=== PATIENT | male | born 1930 | race Caucasian/White ===

== ENCOUNTER → 2016-09-27 | Outpatient (CLI) | payer MEDICARE ==
--- NOTE | 2016-09-27 12:57 | REP ---
KUB: Two views. History: None provided. Comparison x-ray September 15, 2015. Findings: Bowel gas pattern is unremarkable. There are clips in the right upper quadrant. There is a mild levoconvex curve and some degenerative spondylosis in the lumbar spine. Mild vascular calcification is noted. Psoas margins are symmetric. No mass, organomegaly or pathologic calcification is seen. Impression: Right upper quadrant clips. 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 Otherwise negative. Signed by Brendan Mariscal MD 09/27/2016 01:31 P
== END ==
LOC: M LRY 09:50
PROVIDERS: ATTEND Urology
DX: R97.20 Elevated prostate specific antigen [PSA] (principal); N20.0 Calculus of kidney; M47.896 Other spondylosis, lumbar region

== ENCOUNTER → 2016-11-23 | Outpatient (REF) | payer MEDICARE ==
[~2016-11-23] MED LIST: ACAR50TA2 PO; FLON1SPR; GLIM4TAB PO; JANU100T PO; LATA5OPD OU; LISI10TA4 PO; PROT1TAB2 PO; SIMV20TA2 PO; ZOFR4TAB3 PO
[2016-11-23 11:25] LABS: MEAN CORPUSCULAR HEMOGLOBIN 31.5 pg (27.0-33.0); MEAN CORPUSCULAR HGB CONC 33.9 g/dl (32.0-36.5); MEAN CORPUSCULAR VOLUME 93.1 fl (80.0-96.0); RED CELL DISTRIBUTION WIDTH 13.1 % (11.5-14.5); WHITE BLOOD COUNT 8.8 K/mm3 (4.0-10.0)
[2016-11-23 11:34] LABS: CALCIUM LEVEL 8.6 MG/DL (8.8-10.2); CREATININE FOR GFR 1.7 MG/DL (0.70-1.30); GLOMERULAR FILTRATION RATE 40.9 (>35)
== END ==
LOC: M SFHCLERA 08:06
PROVIDERS: ATTEND Family Medicine
DX: E11.9 Type 2 diabetes mellitus without complications (principal)
CPT/HCPCS: 80048; 83036; 85027; G0463

== ENCOUNTER 2017-01-17 09:36 | Emergency (ER) | payer MEDICARE ==
[~2017-01-17] VITALS: Ht 182.9 cm; Wt 70.0 kg
[2017-01-17 09:37] VITALS: BP 114/68
[2017-01-17] MEDS ORDERED: JANU100T PO (09:45)
[2017-01-17] MEDS ORDERED: SIMV20TA2 PO (09:53)
[2017-01-17] MEDS ORDERED: GLIM4TAB PO (09:53)
[2017-01-17] MEDS ORDERED: ACAR50TA2 PO (09:53)
[2017-01-17] MEDS ORDERED: LATA5OPD OU (09:53)
[2017-01-17] MEDS ORDERED: LISI10TA4 PO (09:53)
[2017-01-17] MEDS ORDERED: FLON1SPR (09:53)
[2017-01-17] MEDS ORDERED: PROT1TAB2 PO (10:24)
[2017-01-17] MEDS ORDERED: ZOFR4TAB3 PO (10:24)
== END 2017-01-17 10:30 | disposition home or self-care (01) ==
LOC: M ED 09:36
DX: K29.00 Acute gastritis without bleeding (principal); I10 Essential (primary) hypertension; E11.9 Type 2 diabetes mellitus without complications

== ENCOUNTER → 2017-01-22 | Outpatient (REF) | payer MEDICARE ==
[2017-01-22 21:11] LABS: ALBUMIN 3.1 GM/DL (3.2-5.2); ALBUMIN/GLOBULIN RATIO 1.15 (1.00-1.93); BILIRUBIN,TOTAL 0.4 MG/DL (0.2-1.0); CALCIUM LEVEL 8.3 MG/DL (8.8-10.2); CREATININE FOR GFR 1.52 MG/DL (0.70-1.30); GLOMERULAR FILTRATION RATE 46.5 (>35); POTASSIUM SERUM 4.2 MEQ/L (3.5-5.1); TOTAL PROTEIN 5.8 GM/DL (6.4-8.2)
== END ==
LOC: M SFHCLERA 18:53
PROVIDERS: ATTEND Family Medicine
DX: R11.10 Vomiting, unspecified (principal)
CPT/HCPCS: 80053; G0463

== ENCOUNTER → 2017-01-25 | Outpatient (CLI) | payer MEDICARE ==
--- NOTE | 2017-01-25 10:49 | REP ---
Clinical: Abdominal pain with acute vomiting. Technique: Real time richard scale and color evaluation using curved array transducer. Findings: The patient is noted to be status post cholecystectomy without biliary ductal dilatation. The common bile duct measures 4.6 mm diameter. Liver, pancreas, and spleen are normal in contour, size, and echogenicity without focal hepatic, splenic or pancreatic lesions identified. Right kidney measures 8.1 x 4.6 x 5.8 cm and includes 2.4 cm simple upper pole and 1.4 cm simple midpole cysts. Left kidney measures 10.0 x 6.1 x 6.1 cm with suspected 12 mm nonobstructing intrarenal calculus. The kidneys are otherwise unremarkable and without mass lesion or hydronephrosis. The bladder is under distended but demonstrates normal bilateral ureteral jets and no obvious mass lesion. Bladder currently measures 4.3 x 4.7 x 1.6 cm. The underlying prostate gland is heterogeneous and enlarged measuring roughly 4.6 cm maximal transverse diameter. The abdominal aorta is incompletely evaluated due to interposed bowel gas. No ascites. Impression: 1. Kidneys demonstrate to right simple renal cysts and suspected 12 mm nonobstructing renal calculus. 2. Enlarged heterogeneous prostate gland. Signed by Chris Molina MD 01/25/2017 10:41 A
== END ==
LOC: M LRY 08:25
PROVIDERS: ATTEND Family Medicine
DX: R11.10 Vomiting, unspecified (principal); N28.1 Cyst of kidney, acquired; N40.1 Benign prostatic hyperplasia with lower urinary tract symptoms

== ENCOUNTER → 2017-02-21 | Outpatient (REF) | payer MEDICARE | LOC: M SMT 17:03 | PROVIDERS: ATTEND Nurse Practitioner Women's Health | DX: N40.0 Benign prostatic hyperplasia without lower urinary tract symptoms (principal) | CPT/HCPCS: 51798; 81001; 87086; G0463 ==

== ENCOUNTER → 2017-04-19 | Outpatient (CLI) | payer MEDICARE | LOC: M LRY 10:54 | PROVIDERS: ATTEND Urology | DX: R35.0 Frequency of micturition (principal) ==

== ENCOUNTER → 2017-05-31 | Outpatient (REF) | payer MEDICARE ==
[2017-05-31 12:11] LABS: HEMATOCRIT 46.7 % (42.0-52.0); HEMOGLOBIN 15.5 g/dl (14.0-18.0); MEAN CORPUSCULAR HEMOGLOBIN 30.4 pg (27.0-33.0); MEAN CORPUSCULAR HGB CONC 33.2 g/dl (32.0-36.5); MEAN CORPUSCULAR VOLUME 91.6 fl (80.0-96.0); PLATELET COUNT, AUTOMATED 250 10^3/uL (150-450); RED CELL DISTRIBUTION WIDTH 12.3 % (11.5-14.5)
[2017-05-31 12:21] LABS: MAGNESIUM LEVEL 2.1 MG/DL (1.8-2.4)
[2017-05-31 12:26] LABS: ESTIMATED AVERAGE GLUCOSE 278 MG/DL (60-110); HEMOGLOBIN A1c 11.3 %
[2017-05-31 12:34] LABS: ALBUMIN 3.6 GM/DL (3.2-5.2); ALBUMIN/GLOBULIN RATIO 1.33 (1.00-1.93); ALKALINE PHOSPHATASE 112 U/L (45-117); ALT/SGPT 22 U/L (12-78); ANION GAP 7 MEQ/L (8-16); AST/SGOT 14 U/L (7-37); BILIRUBIN,TOTAL 0.7 MG/DL (0.2-1.0); BLOOD UREA NITROGEN 15 MG/DL (7-18); CALCIUM LEVEL 8.7 MG/DL (8.8-10.2); CARBON DIOXIDE LEVEL 29 MEQ/L (21-32); CHLORIDE LEVEL 104 MEQ/L (98-107); CHOLESTEROL LEVEL 159 MG/DL (<200); CHOLESTEROL RISK RATIO 3.244 (<5); CREATININE FOR GFR 1.48 MG/DL (0.70-1.30); GLUCOSE, FASTING 331 MG/DL (83-110); HDL CHOLESTEROL 49 MG/DL (>40); LDL CHOLESTEROL 83.2 MG/DL (<100); NON-HDL-C 110 MG/DL; POTASSIUM SERUM 4.1 MEQ/L (3.5-5.1); SODIUM LEVEL 140 MEQ/L (136-145); TOTAL PROTEIN 6.3 GM/DL (6.4-8.2); TRIGLYCERIDES LEVEL 134 MG/DL (<150)
[2017-05-31 12:54] LABS: MALB URINE SIEMENS 28.4 MG/L; MAU/CREAT RATIO 17.9 MCG/MG (0.0-30.0)
== END ==
LOC: M SFHCLERA 07:58
DX: E11.9 Type 2 diabetes mellitus without complications (principal); K21.9 Gastro-esophageal reflux disease without esophagitis
CPT/HCPCS: 83735

== ENCOUNTER 2017-07-07 04:15 | Inpatient (IN) | payer MEDICARE ==
[2017-07-07 05:10] LABS: HEMATOCRIT 49.3 % (42.0-52.0); HEMOGLOBIN 15.5 g/dl (14.0-18.0); MEAN CORPUSCULAR HGB CONC 31.4 g/dl (32.0-36.5); MEAN CORPUSCULAR VOLUME 98.6 fl (80.0-96.0); PLATELET COUNT, AUTOMATED 291 10^3/uL (150-450); RED CELL DISTRIBUTION WIDTH 13.1 % (11.5-14.5); WHITE BLOOD COUNT 21.8 10^3/uL (4.0-10.0)
[2017-07-07 05:14] LABS: ADD MANUAL DIFFER YES; DIFF SLIDE NUMBER 83; POSITIVE MORPH POS FLAG
[2017-07-07] MEDS: NS 500 ML IV ×2 (05:15→06:15)
[2017-07-07] MEDS: HumuLIN R (REGULAR) INSULIN (NovoLIN R) **100U/ML** PER UNIT IV ×3 (05:15→10:01)
[2017-07-07 05:36] LABS: ALBUMIN 2.8 GM/DL (3.2-5.2); ALBUMIN/GLOBULIN RATIO 0.64 (1.00-1.93); ALKALINE PHOSPHATASE 141 U/L (45-117); ALT/SGPT 17 U/L (12-78); ANION GAP 15 MEQ/L (8-16); AST/SGOT 19 U/L (7-37); BILIRUBIN,DIRECT 0.5 MG/DL (0.0-0.2); BILIRUBIN,TOTAL 1.2 MG/DL (0.2-1.0); BLOOD UREA NITROGEN 80 MG/DL (7-18); CALCIUM LEVEL 8.1 MG/DL (8.8-10.2); CARBON DIOXIDE LEVEL 23 MEQ/L (21-32); CHLORIDE LEVEL 94 MEQ/L (98-107); CREATININE FOR GFR 3.56 MG/DL (0.70-1.30); FREE THYROXINE INDEX 3.1 % (1.4-3.8); GLOMERULAR FILTRATION RATE 17.4 (>35); SODIUM LEVEL 132 MEQ/L (136-145); T UPTAKE 34 % (33-40); THYROID STIMULATING HORMONE 0.374 uIU/ML (0.358-3.740); TOTAL PROTEIN 7.2 GM/DL (6.4-8.2)
[2017-07-07 05:56] LABS: GLUCOSE, FASTING 1147 MG/DL (70-100)
[2017-07-07 06:08] LABS: LYMPHOCYTES 5 % (16-52); NEUTROPHILS 95 % (35-75); PLATELET ESTIMATE NORMAL (NORMAL)
[2017-07-07] MEDS ORDERED: INSULIN IV RATE CHANGE DOCUMENTATION ML/HR XX (06:15)
[2017-07-07] MEDS: INSULIN HUMAN REGULAR 100 UNITS in NS 99 ML IV ×2 (06:15→10:01)
[2017-07-07 06:17] LABS: INFLUENZA A AMPLIFICATION NEGATIVE (NEGATIVE); INFLUENZA B AMPLIFICATION NEGATIVE (NEGATIVE)
[2017-07-07] MEDS: SOD POLYSTYRENE SULFONATE SUSP 15 GM/60 ML UD PO (07:36)
[2017-07-07] MEDS: NS 2,320 ML in APPROPRIATE DILUENT 1 EA IV (08:15)
[2017-07-07] MEDS ORDERED: ONDANSETRON 4MG/2ML VIAL (J2405) IV (08:15)
[2017-07-07 08:42] LABS: MAGNESIUM LEVEL 3.1 MG/DL (1.8-2.4); PHOSPHORUS LEVEL 4.7 MG/DL (2.5-4.9)
[2017-07-07 09:19] LABS: APPEARANCE, URINE HAZY (CLEAR); BACTERIA, URINE AUTO 2+ (NEGATIVE); BILIRUBIN, URINE AUTO NEGATIVE (NEGATIVE); BLOOD, URINE BLOOD 2+ (NEGATIVE); COLOR, URINE YELLOW (YELLOW); GLUCOSE, URINE (UA) AUTO 3+ mg/dL (NEGATIVE); KETONE, URINE AUTO TRACE mg/dL (NEGATIVE); LEUKOCYTE ESTERASE, URINE AUTO 1+ (NEGATIVE); MUCUS, URINE SMALL (NEGATIVE); NITRITE, URINE AUTO NEGATIVE (NEGATIVE); PROTEIN, URINE AUTO NEGATIVE (NEGATIVE); RBC, URINE AUTO 4 /HPF (0-3); SPECIFIC GRAVITY URINE AUTO 1.023 (1.002-1.035); SQUAMOUS EPITHELIAL CELL UR AU 0 /HPF (0-6); UROBILINOGEN, URINE AUTO 0.2 mg/dL (0.0-2.0); WBC, URINE AUTO 71 /HPF (0-3)
[2017-07-07] MEDS: PANTOPRAZOLE 40MG TAB (PROTONIX) PO (10:01)
[2017-07-07] MEDS: LACTOBACILLUS ACIDOPHILUS CAP (BACID) PO ×3 (10:01→17:10)
[2017-07-07] MEDS: HEPARIN SOD (PORCINE) 5000 UNITS/ML VIAL SC ×2 (10:02→13:41)
[2017-07-07 10:12] LABS: BEDSIDE GLUCOSE 537 MG/DL (83-110)
[2017-07-07] MEDS: NS 1,000 ML IV ×5 (10:17→23:13)
[2017-07-07] MEDS: INSULIN IV RATE CHANGE DOCUMENTATION ML/HR XX ×9 (11:05→23:28)
[2017-07-07] MEDS: VANCOMYCIN HCL 1,000 MG, VIAL MATE ADAPTER 1 EACH in D5W 250 ML IV (11:16)
[2017-07-07] MEDS: CEFTRIAXONE SOD 1 GM in APPROPRIATE DILUENT 1 EA IV (11:16)
[2017-07-07 11:29] LABS: BEDSIDE GLUCOSE 444 MG/DL (83-110)
[2017-07-07 12:19] LABS: BEDSIDE GLUCOSE 356 MG/DL (83-110)
[2017-07-07 12:56] LABS: ESTIMATED AVERAGE GLUCOSE 332 MG/DL (60-110); HEMOGLOBIN A1c 13.2 %
[2017-07-07 12:58] LABS: BEDSIDE GLUCOSE > 600 MG/DL (83-110)
[2017-07-07 12:58] LABS: BEDSIDE GLUCOSE > 600 MG/DL (83-110)
[2017-07-07 12:58] LABS: BEDSIDE GLUCOSE > 600 MG/DL (83-110)
[2017-07-07 12:58] LABS: BEDSIDE GLUCOSE > 600 MG/DL (83-110)
[2017-07-07 12:58] LABS: BEDSIDE GLUCOSE > 600 MG/DL (83-110)
[2017-07-07 13:13] LABS: BLOOD UREA NITROGEN 75 MG/DL (7-18); CK-MB VALUE MASS 1.1 NG/ML (0.0-3.6); CPK CREATINE PHOSPHOKINASE 111 U/L (39-308); CREATININE FOR GFR 3.19 MG/DL (0.70-1.30); GLOMERULAR FILTRATION RATE 19.8 (>35); GLUCOSE, FASTING 371 MG/DL (70-100); MB/CK RELATIVE INDEX 0.99 (< OR =4); TROPONIN I < 0.02 NG/ML (< 0.10)
[2017-07-07 13:14] LABS: ANION GAP 11 MEQ/L (8-16); CARBON DIOXIDE LEVEL 25 MEQ/L (21-32); CHLORIDE LEVEL 115 MEQ/L (98-107); POTASSIUM SERUM 3.6 MEQ/L (3.5-5.1); SODIUM LEVEL 151 MEQ/L (136-145)
[2017-07-07 13:14] LABS: BEDSIDE GLUCOSE 352 MG/DL (83-110)
[2017-07-07 13:15] LABS: CALCIUM LEVEL 7.8 MG/DL (8.8-10.2)
[2017-07-07] MEDS: CALCIUM GLUCONATE 1,000 MG in D5W MINI-BAG PLUS 100 ML IV (13:40)
[2017-07-07 13:41] LABS: ACETONE/KETONE 0.89 MG/DL (<2.81)
[2017-07-07 13:49] LABS: LACTIC ACID SEPSIS PROTOCOL 4.9 MMOL/L (0.4-2.0)
[2017-07-07 14:28] LABS: BEDSIDE GLUCOSE 311 MG/DL (83-110)
[2017-07-07 15:06] LABS: BEDSIDE GLUCOSE 278 MG/DL (83-110)
[2017-07-07 16:36] LABS: BEDSIDE GLUCOSE 303 MG/DL (83-110)
[2017-07-07 17:06] LABS: ANION GAP 7 MEQ/L (8-16); BLOOD UREA NITROGEN 77 MG/DL (7-18); CALCIUM LEVEL 8.4 MG/DL (8.8-10.2); CARBON DIOXIDE LEVEL 30 MEQ/L (21-32); CHLORIDE LEVEL 112 MEQ/L (98-107); CREATININE FOR GFR 2.97 MG/DL (0.70-1.30); GLOMERULAR FILTRATION RATE 21.5 (>35); GLUCOSE, FASTING 200 MG/DL (70-100); POTASSIUM SERUM 3.3 MEQ/L (3.5-5.1); SODIUM LEVEL 149 MEQ/L (136-145)
[2017-07-07] MEDS ORDERED: LACTOBACILLUS ACIDOPHILUS CAP (BACID) PO (18:00)
[2017-07-07 18:10] LABS: BEDSIDE GLUCOSE 207 MG/DL (83-110)
[2017-07-07 19:06] LABS: BEDSIDE GLUCOSE 183 MG/DL (83-110)
[2017-07-07] MEDS: ACETAMINOPHEN TAB 650MG DOSE (2X325MG) PO (20:14)
[2017-07-07] MEDS: SIMVASTATIN 20 MG TAB PO (20:14)
[2017-07-07] MEDS: LATANOPROST 0.005% OPHTH SOLN 2.5 ML OU (20:14)
[2017-07-07 20:42] LABS: ANION GAP 10 MEQ/L (8-16); BLOOD UREA NITROGEN 78 MG/DL (7-18); CALCIUM LEVEL 7.9 MG/DL (8.8-10.2); CARBON DIOXIDE LEVEL 24 MEQ/L (21-32); CHLORIDE LEVEL 114 MEQ/L (98-107); CK-MB VALUE MASS 1.1 NG/ML (0.0-3.6); CPK CREATINE PHOSPHOKINASE 111 U/L (39-308); CREATININE FOR GFR 2.84 MG/DL (0.70-1.30); GLOMERULAR FILTRATION RATE 22.6 (>35); GLUCOSE, FASTING 187 MG/DL (70-100); MB/CK RELATIVE INDEX 0.99 (< OR =4); POTASSIUM SERUM 3.2 MEQ/L (3.5-5.1); SODIUM LEVEL 148 MEQ/L (136-145); TROPONIN I < 0.02 NG/ML (< 0.10)
[2017-07-07 21:09] LABS: BEDSIDE GLUCOSE 174 MG/DL (83-110)
[2017-07-07] MEDS ORDERED: POTASSIUM BICARBONATE 25 MEQ TAB PO ×2 (21:15→22:00)
[2017-07-07] MEDS: D5/0.45%NACL 1000ML IV (21:30)
[2017-07-07 21:57] LABS: MAGNESIUM LEVEL 2.6 MG/DL (1.8-2.4); PHOSPHORUS LEVEL 1.8 MG/DL (2.5-4.9)
[2017-07-07] MEDS: PHENYLEPHRINE HCL IV (22:00)
[2017-07-07] MEDS: NS IV (22:00)
[2017-07-07] MEDS ORDERED: PHENYLEPHRINE INJ 10MG/ML VIAL (J2370) As Ordered (22:02)
[2017-07-07] MEDS: POTASSIUM CHLORIDE 10 MEQ SR TABLET PO (22:19)
[2017-07-07 23:03] LABS: BEDSIDE GLUCOSE 242 MG/DL (83-110)
[2017-07-07] MEDS: PIPERACILLIN/TAZOBACTAM SOD 2.25 GM in APPROPRIATE DILUENT 1 EA IV (23:13)
[2017-07-07] MEDS: POTASSIUM PHOSPHATE INJ 15 MMOL in D5W 250 ML IV (23:23)
[2017-07-08 00:21] LABS: BEDSIDE GLUCOSE 222 MG/DL (83-110)
[2017-07-08 00:39] LABS: ANION GAP 9 MEQ/L (8-16); BLOOD UREA NITROGEN 66 MG/DL (7-18); CALCIUM LEVEL 6.8 MG/DL (8.8-10.2); CARBON DIOXIDE LEVEL 23 MEQ/L (21-32); CHLORIDE LEVEL 116 MEQ/L (98-107); GLOMERULAR FILTRATION RATE 26.2 (>35); GLUCOSE, FASTING 202 MG/DL (70-100); POTASSIUM SERUM 3.4 MEQ/L (3.5-5.1); SODIUM LEVEL 148 MEQ/L (136-145)
[2017-07-08] MEDS ORDERED: NOREPINEPHRINE 4 MG/4 ML AMP As Ordered (00:43)
[2017-07-08] MEDS: NOREPINEPHRINE BITARTRATE 8 MG in D5W 492 ML IV ×2 (01:08→21:42)
[2017-07-08] MEDS: DIGOXIN INJ 0.5 MG/2 ML AMP (J1160) IV ×4 (01:08→18:09)
[2017-07-08] MEDS: NS 1,000 ML IV ×3 (01:43→10:51)
[2017-07-08] MEDS: HEPARIN DRIP 25,000 UNITS in APPROPRIATE DILUENT 1 EA IV (01:49)
[2017-07-08] MEDS: INSULIN IV RATE CHANGE DOCUMENTATION ML/HR XX ×3 (01:53→07:46)
[2017-07-08] MEDS: CALCIUM CARBONATE 500 MG CHEW U/D PO (02:35)
[2017-07-08] MEDS: POTASSIUM PHOSPHATE INJ 15 MMOL in D5W 250 ML IV (02:37)
[2017-07-08 02:39] LABS: LACTIC ACID SEPSIS PROTOCOL 2.6 MMOL/L (0.4-2.0)
[2017-07-08 02:41] LABS: BEDSIDE GLUCOSE 186 MG/DL (83-110)
[2017-07-08 02:41] LABS: BEDSIDE GLUCOSE 176 MG/DL (83-110)
[2017-07-08 03:07] LABS: BEDSIDE GLUCOSE 209 MG/DL (83-110)
[2017-07-08 04:40] LABS: BEDSIDE GLUCOSE 208 MG/DL (83-110)
[2017-07-08] MEDS: PIPERACILLIN/TAZOBACTAM SOD 2.25 GM in APPROPRIATE DILUENT 1 EA IV ×3 (05:15→18:08)
[2017-07-08 05:18] LABS: BEDSIDE GLUCOSE 193 MG/DL (83-110)
[2017-07-08 05:39] LABS: BASO # 0.1 10^3/uL (0.0-0.2); BASO % 0.2 % (0.0-1.0); EOS % 0.1 % (0.0-3.0); HEMATOCRIT 36.4 % (42.0-52.0); IMMATURE GRANULOCYTE % 0.8 % (0-3.0); LYMPH # 1.5 10^3/uL (1.5-4.5); LYMPH % 5.8 % (24.0-44.0); MEAN CORPUSCULAR HEMOGLOBIN 31.1 pg (27.0-33.0); MEAN CORPUSCULAR HGB CONC 33.8 g/dl (32.0-36.5); MEAN CORPUSCULAR VOLUME 92.2 fl (80.0-96.0); MONO # 1.3 10^3/uL (0.0-0.8); NEUTROPHILS # 22.6 10^3/uL (1.8-7.7); NEUTROPHILS % 88.1 % (36.0-66.0); PLATELET COUNT, AUTOMATED 199 10^3/uL (150-450); RED BLOOD COUNT 3.95 10^6/uL (4.30-6.10); RED CELL DISTRIBUTION WIDTH 12.9 % (11.5-14.5); WHITE BLOOD COUNT 25.7 10^3/uL (4.0-10.0)
[2017-07-08 05:43] LABS: HEMOGLOBIN 12.3 g/dl (14.0-18.0)
[2017-07-08 05:47] LABS: ANION GAP 11 MEQ/L (8-16); BLOOD UREA NITROGEN 57 MG/DL (7-18); CALCIUM LEVEL 6.2 MG/DL (8.8-10.2); CARBON DIOXIDE LEVEL 21 MEQ/L (21-32); CHLORIDE LEVEL 118 MEQ/L (98-107); CK-MB VALUE MASS 1.1 NG/ML (0.0-3.6); CPK CREATINE PHOSPHOKINASE 142 U/L (39-308); CREATININE FOR GFR 2.16 MG/DL (0.70-1.30); GLUCOSE, FASTING 210 MG/DL (70-100); MB/CK RELATIVE INDEX 0.77 (< OR =4); POTASSIUM SERUM 3.6 MEQ/L (3.5-5.1); SODIUM LEVEL 150 MEQ/L (136-145); TROPONIN I 0.04 NG/ML (< 0.10)
[2017-07-08] MEDS ORDERED: ACETAMINOPHEN TAB 650MG DOSE (2X325MG) As Ordered (06:48)
[2017-07-08] MEDS ORDERED: DIGOXIN INJ 0.5 MG/2 ML AMP (J1160) As Ordered (06:48)
[2017-07-08] MEDS: ACETAMINOPHEN TAB 650MG DOSE (2X325MG) PO ×3 (06:56→21:40)
[2017-07-08 07:33] LABS: BEDSIDE GLUCOSE 175 MG/DL (83-110)
[2017-07-08 07:33] LABS: BEDSIDE GLUCOSE 187 MG/DL (83-110)
[2017-07-08 08:15] LABS: BEDSIDE GLUCOSE 178 MG/DL (83-110)
[2017-07-08 08:23] LABS: PARTIAL THROMBOPLASTIN TIME 76.2 SECONDS (26.8-37.9)
[2017-07-08] MEDS: ACETAMINOPHEN 650 MG SUPP PR (09:13)
[2017-07-08 09:18] LABS: ANION GAP 9 MEQ/L (8-16); BLOOD UREA NITROGEN 52 MG/DL (7-18); CALCIUM LEVEL 6.1 MG/DL (8.8-10.2); CARBON DIOXIDE LEVEL 23 MEQ/L (21-32); CHLORIDE LEVEL 120 MEQ/L (98-107); CREATININE FOR GFR 1.98 MG/DL (0.70-1.30); GLOMERULAR FILTRATION RATE 34.3 (>35); GLUCOSE, FASTING 181 MG/DL (70-100); POTASSIUM SERUM 3.4 MEQ/L (3.5-5.1); SODIUM LEVEL 152 MEQ/L (136-145)
[2017-07-08] MEDS ORDERED: GLUCAGON FOR INJ 1 MG VIAL (J1610) SC (09:45)
[2017-07-08] MEDS ORDERED: DEXTROSE 50% 50 ML SYRINGE IV (09:45)
[2017-07-08] MEDS ORDERED: GLUCOSE 4 GM CHEW TABLET PO (09:45)
[2017-07-08] MEDS: PANTOPRAZOLE 40MG TAB (PROTONIX) PO (09:47)
[2017-07-08] MEDS: LACTOBACILLUS ACIDOPHILUS CAP (BACID) PO ×3 (09:47→18:08)
[2017-07-08] MEDS: HEPARIN SOD (PORCINE) 5000 UNITS/ML VIAL SC (09:49)
[2017-07-08] MEDS: VANCOMYCIN HCL 500 MG in D5W MINI-BAG PLUS 100 ML IV (10:00)
[2017-07-08] MEDS ORDERED: POTASSIUM CHLORIDE 10 MEQ SR TABLET PO (10:30)
[2017-07-08] MEDS: KCL 20MEQ IN 100ML SWI (KRUN) 20 MEQ in APPROPRIATE DILUENT 1 EA IV (10:34)
[2017-07-08] MEDS: KCL 20MEQ IN 0.45NS 1000ML 1,000 ML IV ×2 (12:09→18:19)
[2017-07-08] MEDS: HumaLOG INSULIN (NovoLOG) PER UNIT SC ×2 (12:10→18:08)
[2017-07-08 13:08] LABS: ANION GAP 8 MEQ/L (8-16); BLOOD UREA NITROGEN 49 MG/DL (7-18); CALCIUM LEVEL 6.1 MG/DL (8.8-10.2); CARBON DIOXIDE LEVEL 22 MEQ/L (21-32); CHLORIDE LEVEL 122 MEQ/L (98-107); CREATININE FOR GFR 1.95 MG/DL (0.70-1.30); GLOMERULAR FILTRATION RATE 34.9 (>35); GLUCOSE, FASTING 175 MG/DL (70-100); POTASSIUM SERUM 3.8 MEQ/L (3.5-5.1); SODIUM LEVEL 152 MEQ/L (136-145)
[2017-07-08 17:14] LABS: ANION GAP 7 MEQ/L (8-16); BLOOD UREA NITROGEN 46 MG/DL (7-18); CARBON DIOXIDE LEVEL 23 MEQ/L (21-32); CHLORIDE LEVEL 121 MEQ/L (98-107); CREATININE FOR GFR 1.88 MG/DL (0.70-1.30); GLOMERULAR FILTRATION RATE 36.4 (>35); GLUCOSE, FASTING 147 MG/DL (70-100); POTASSIUM SERUM 3.9 MEQ/L (3.5-5.1); SODIUM LEVEL 151 MEQ/L (136-145)
[2017-07-08 17:43] LABS: BEDSIDE GLUCOSE 191 MG/DL (83-110)
[2017-07-08 17:43] LABS: BEDSIDE GLUCOSE 178 MG/DL (83-110)
[2017-07-08 17:43] LABS: BEDSIDE GLUCOSE 159 MG/DL (83-110)
[2017-07-08] MEDS: LATANOPROST 0.005% OPHTH SOLN 2.5 ML OU (21:39)
[2017-07-08] MEDS: SIMVASTATIN 20 MG TAB PO (21:39)
[2017-07-08 22:13] LABS: PARTIAL THROMBOPLASTIN TIME 63.3 SECONDS (26.8-37.9)
[2017-07-08 22:35] LABS: ANION GAP 8 MEQ/L (8-16); BLOOD UREA NITROGEN 42 MG/DL (7-18); CALCIUM LEVEL 6.3 MG/DL (8.8-10.2); CARBON DIOXIDE LEVEL 22 MEQ/L (21-32); CHLORIDE LEVEL 120 MEQ/L (98-107); CREATININE FOR GFR 1.81 MG/DL (0.70-1.30); GLUCOSE, FASTING 114 MG/DL (70-100); POTASSIUM SERUM 3.9 MEQ/L (3.5-5.1); SODIUM LEVEL 150 MEQ/L (136-145)
[2017-07-09] MEDS: PIPERACILLIN/TAZOBACTAM SOD 2.25 GM in APPROPRIATE DILUENT 1 EA IV ×5 (00:02→23:00)
[2017-07-09] MEDS: HumaLOG INSULIN (NovoLOG) PER UNIT SC ×5 (00:57→23:41)
[2017-07-09] MEDS: KCL 20MEQ IN 0.45NS 1000ML 1,000 ML IV ×2 (00:57→07:38)
[2017-07-09 02:53] LABS: BEDSIDE GLUCOSE 127 MG/DL (83-110)
[2017-07-09 02:53] LABS: BEDSIDE GLUCOSE 304 MG/DL (83-110)
[2017-07-09 02:53] LABS: BEDSIDE GLUCOSE 164 MG/DL (83-110)
[2017-07-09 02:53] LABS: BEDSIDE GLUCOSE 229 MG/DL (83-110)
[2017-07-09 02:53] LABS: BEDSIDE GLUCOSE 155 MG/DL (83-110)
[2017-07-09] MEDS: HEPARIN DRIP 25,000 UNITS in APPROPRIATE DILUENT 1 EA IV (05:53)
[2017-07-09 06:12] LABS: BASO % 0.2 % (0.0-1.0); EOS # 0.2 10^3/uL (0.0-0.50); EOS % 1.4 % (0.0-3.0); HEMOGLOBIN 10.8 g/dl (14.0-18.0); IMMATURE GRANULOCYTE % 0.7 % (0-3.0); LYMPH # 1.1 10^3/uL (1.5-4.5); LYMPH % 10.7 % (24.0-44.0); MEAN CORPUSCULAR HEMOGLOBIN 30.3 pg (27.0-33.0); MEAN CORPUSCULAR HGB CONC 32.7 g/dl (32.0-36.5); MEAN CORPUSCULAR VOLUME 92.7 fl (80.0-96.0); MONO # 0.6 10^3/uL (0.0-0.8); MONO % 5.9 % (0.0-5.0); NEUTROPHILS # 8.4 10^3/uL (1.8-7.7); NEUTROPHILS % 81.1 % (36.0-66.0); PLATELET COUNT, AUTOMATED 143 10^3/uL (150-450); RED BLOOD COUNT 3.56 10^6/uL (4.30-6.10); RED CELL DISTRIBUTION WIDTH 12.8 % (11.5-14.5); WHITE BLOOD COUNT 10.4 10^3/uL (4.0-10.0)
[2017-07-09 06:20] LABS: PARTIAL THROMBOPLASTIN TIME 69.8 SECONDS (26.8-37.9)
[2017-07-09 06:29] LABS: ANION GAP 8 MEQ/L (8-16); BLOOD UREA NITROGEN 34 MG/DL (7-18); CALCIUM LEVEL 6.1 MG/DL (8.8-10.2); CARBON DIOXIDE LEVEL 22 MEQ/L (21-32); CHLORIDE LEVEL 119 MEQ/L (98-107); CREATININE FOR GFR 1.61 MG/DL (0.70-1.30); GLOMERULAR FILTRATION RATE 43.5 (>35); GLUCOSE, FASTING 161 MG/DL (70-100); POTASSIUM SERUM 4.2 MEQ/L (3.5-5.1); SODIUM LEVEL 149 MEQ/L (136-145)
[2017-07-09 06:43] LABS: DIGOXIN LEVEL 1.2 NG/ML (0.5-2.0)
[2017-07-09] MEDS: LACTOBACILLUS ACIDOPHILUS CAP (BACID) PO ×3 (09:05→17:12)
[2017-07-09] MEDS: VANCOMYCIN HCL 500 MG in D5W MINI-BAG PLUS 100 ML IV (09:06)
[2017-07-09] MEDS: PANTOPRAZOLE 40MG TAB (PROTONIX) PO (09:06)
[2017-07-09] MEDS: NS 0.45% 1,000 ML IV ×2 (09:07→21:15)
[2017-07-09 12:09] LABS: BEDSIDE GLUCOSE 133 MG/DL (83-110)
[2017-07-09 12:30] LABS: PARTIAL THROMBOPLASTIN TIME 69.4 SECONDS (26.8-37.9)
[2017-07-09 14:48] LABS: MAGNESIUM LEVEL 1.8 MG/DL (1.8-2.4)
[2017-07-09 14:51] LABS: ANION GAP 7 MEQ/L (8-16); BLOOD UREA NITROGEN 30 MG/DL (7-18); CALCIUM LEVEL 6.3 MG/DL (8.8-10.2); CARBON DIOXIDE LEVEL 22 MEQ/L (21-32); CHLORIDE LEVEL 118 MEQ/L (98-107); CREATININE FOR GFR 1.55 MG/DL (0.70-1.30); GLOMERULAR FILTRATION RATE 45.5 (>35); GLUCOSE, FASTING 137 MG/DL (70-100); POTASSIUM SERUM 4.1 MEQ/L (3.5-5.1); SODIUM LEVEL 147 MEQ/L (136-145)
[2017-07-09] MEDS: WARFARIN SOD 3 MG TAB PO (17:12)
[2017-07-09 17:47] LABS: BEDSIDE GLUCOSE 106 MG/DL (83-110)
[2017-07-09] MEDS: LATANOPROST 0.005% OPHTH SOLN 2.5 ML OU (21:17)
[2017-07-09] MEDS: SIMVASTATIN 20 MG TAB PO (21:17)
[2017-07-09 23:46] LABS: BEDSIDE GLUCOSE 137 MG/DL (83-110)
[2017-07-10 00:41] LABS: ANION GAP 7 MEQ/L (8-16); BLOOD UREA NITROGEN 25 MG/DL (7-18); CALCIUM LEVEL 6.6 MG/DL (8.8-10.2); CARBON DIOXIDE LEVEL 23 MEQ/L (21-32); CHLORIDE LEVEL 116 MEQ/L (98-107); CREATININE FOR GFR 1.47 MG/DL (0.70-1.30); GLOMERULAR FILTRATION RATE 48.4 (>35); GLUCOSE, FASTING 135 MG/DL (70-100); POTASSIUM SERUM 3.9 MEQ/L (3.5-5.1); SODIUM LEVEL 146 MEQ/L (136-145)
[2017-07-10] MEDS: NOREPINEPHRINE BITARTRATE 8 MG in D5W 492 ML IV (00:45)
[2017-07-10] MEDS: PIPERACILLIN/TAZOBACTAM SOD 2.25 GM in APPROPRIATE DILUENT 1 EA IV ×4 (05:00→23:38)
[2017-07-10 05:19] LABS: BASO % 0.4 % (0.0-1.0); EOS # 0.2 10^3/uL (0.0-0.50); EOS % 2.2 % (0.0-3.0); HEMATOCRIT 31.3 % (42.0-52.0); HEMOGLOBIN 10.4 g/dl (14.0-18.0); IMMATURE GRANULOCYTE % 0.9 % (0-3.0); LYMPH # 1.3 10^3/uL (1.5-4.5); LYMPH % 14.6 % (24.0-44.0); MEAN CORPUSCULAR HEMOGLOBIN 30.7 pg (27.0-33.0); MEAN CORPUSCULAR HGB CONC 33.2 g/dl (32.0-36.5); MEAN CORPUSCULAR VOLUME 92.3 fl (80.0-96.0); MONO # 0.6 10^3/uL (0.0-0.8); MONO % 7.2 % (0.0-5.0); NEUTROPHILS # 6.4 10^3/uL (1.8-7.7); NEUTROPHILS % 74.7 % (36.0-66.0); PLATELET COUNT, AUTOMATED 137 10^3/uL (150-450); RED BLOOD COUNT 3.39 10^6/uL (4.30-6.10); RED CELL DISTRIBUTION WIDTH 12.9 % (11.5-14.5); WHITE BLOOD COUNT 8.6 10^3/uL (4.0-10.0)
[2017-07-10 05:35] LABS: INR 1.18; PROTHROMBIN TIME 15.2 SECONDS (12.4-14.5)
[2017-07-10 05:36] LABS: PARTIAL THROMBOPLASTIN TIME 74.5 SECONDS (26.8-37.9)
[2017-07-10] MEDS: HumaLOG INSULIN (NovoLOG) PER UNIT SC ×5 (06:00→23:38)
[2017-07-10 06:26] LABS: ANION GAP 8 MEQ/L (8-16); BLOOD UREA NITROGEN 23 MG/DL (7-18); CALCIUM LEVEL 6.4 MG/DL (8.8-10.2); CARBON DIOXIDE LEVEL 23 MEQ/L (21-32); CHLORIDE LEVEL 116 MEQ/L (98-107); CREATININE FOR GFR 1.47 MG/DL (0.70-1.30); GLOMERULAR FILTRATION RATE 48.4 (>35); GLUCOSE, FASTING 141 MG/DL (70-100); SODIUM LEVEL 147 MEQ/L (136-145)
[2017-07-10 06:43] LABS: DIGOXIN LEVEL 0.8 NG/ML (0.5-2.0)
[2017-07-10] MEDS: PANTOPRAZOLE 40MG TAB (PROTONIX) PO (08:19)
[2017-07-10] MEDS: LACTOBACILLUS ACIDOPHILUS CAP (BACID) PO ×3 (08:19→18:03)
[2017-07-10] MEDS ORDERED: GLUCAGON FOR INJ 1 MG VIAL (J1610) SC ×2 (08:45→10:45)
[2017-07-10] MEDS ORDERED: GLUCOSE 4 GM CHEW TABLET PO ×2 (08:45→10:45)
[2017-07-10] MEDS ORDERED: DEXTROSE 50% 50 ML SYRINGE IV ×2 (08:45→10:45)
[2017-07-10] MEDS: HEPARIN DRIP 25,000 UNITS in APPROPRIATE DILUENT 1 EA IV (10:11)
[2017-07-10] MEDS: D5W 1,000 ML IV (10:11)
[2017-07-10 11:59] LABS: BEDSIDE GLUCOSE 307 MG/DL (83-110)
[2017-07-10 18:03] LABS: BEDSIDE GLUCOSE 255 MG/DL (83-110)
[2017-07-10 19:15] LABS: ANION GAP 7 MEQ/L (8-16); BLOOD UREA NITROGEN 21 MG/DL (7-18); CALCIUM LEVEL 6.4 MG/DL (8.8-10.2); CARBON DIOXIDE LEVEL 24 MEQ/L (21-32); CHLORIDE LEVEL 114 MEQ/L (98-107); CREATININE FOR GFR 1.59 MG/DL (0.70-1.30); GLOMERULAR FILTRATION RATE 44.2 (>35); GLUCOSE, FASTING 292 MG/DL (70-100); POTASSIUM SERUM 4.2 MEQ/L (3.5-5.1); SODIUM LEVEL 145 MEQ/L (136-145)
[2017-07-10] MEDS: LATANOPROST 0.005% OPHTH SOLN 2.5 ML OU (20:28)
[2017-07-10] MEDS: SIMVASTATIN 20 MG TAB PO (20:28)
[2017-07-10] MEDS ORDERED: HumaLOG INSULIN (NovoLOG) PER UNIT SC (21:00)
[2017-07-10 23:42] LABS: BEDSIDE GLUCOSE 230 MG/DL (83-110)
[2017-07-11] MEDS: HumaLOG INSULIN (NovoLOG) PER UNIT SC ×4 (05:22→20:54)
[2017-07-11] MEDS: D5W 1,000 ML IV (05:23)
[2017-07-11] MEDS: PIPERACILLIN/TAZOBACTAM SOD 2.25 GM in APPROPRIATE DILUENT 1 EA IV ×4 (05:23→23:14)
[2017-07-11 05:27] LABS: BEDSIDE GLUCOSE 139 MG/DL (83-110)
[2017-07-11 05:29] LABS: BASO % 0.2 % (0.0-1.0); EOS # 0.3 10^3/uL (0.0-0.50); EOS % 3.7 % (0.0-3.0); HEMOGLOBIN 10.5 g/dl (14.0-18.0); IMMATURE GRANULOCYTE % 1.5 % (0-3.0); LYMPH # 1.5 10^3/uL (1.5-4.5); MEAN CORPUSCULAR HGB CONC 33.9 g/dl (32.0-36.5); MEAN CORPUSCULAR VOLUME 91.4 fl (80.0-96.0); MONO # 0.7 10^3/uL (0.0-0.8); MONO % 8.4 % (0.0-5.0); NEUTROPHILS # 5.6 10^3/uL (1.8-7.7); NEUTROPHILS % 68.2 % (36.0-66.0); PLATELET COUNT, AUTOMATED 169 10^3/uL (150-450); RED BLOOD COUNT 3.39 10^6/uL (4.30-6.10); RED CELL DISTRIBUTION WIDTH 12.7 % (11.5-14.5); WHITE BLOOD COUNT 8.2 10^3/uL (4.0-10.0)
[2017-07-11 05:43] LABS: INR 1.17; PROTHROMBIN TIME 15.1 SECONDS (12.4-14.5)
[2017-07-11 05:44] LABS: PARTIAL THROMBOPLASTIN TIME 60.4 SECONDS (26.8-37.9)
[2017-07-11] MEDS: HEPARIN SOD (PORCINE) 5000 UNITS/ML VIAL IV (06:01)
[2017-07-11 06:25] LABS: ANION GAP 9 MEQ/L (8-16); BLOOD UREA NITROGEN 18 MG/DL (7-18); CALCIUM LEVEL 6.6 MG/DL (8.8-10.2); CARBON DIOXIDE LEVEL 23 MEQ/L (21-32); CHLORIDE LEVEL 114 MEQ/L (98-107); CREATININE FOR GFR 1.32 MG/DL (0.70-1.30); DIGOXIN LEVEL 0.5 NG/ML (0.5-2.0); GLOMERULAR FILTRATION RATE 54.7 (>35); GLUCOSE, FASTING 131 MG/DL (70-100); POTASSIUM SERUM 3.6 MEQ/L (3.5-5.1); SODIUM LEVEL 146 MEQ/L (136-145)
[2017-07-11] MEDS: LACTOBACILLUS ACIDOPHILUS CAP (BACID) PO ×3 (08:53→17:00)
[2017-07-11] MEDS: PANTOPRAZOLE 40MG TAB (PROTONIX) PO (08:53)
[2017-07-11 11:36] LABS: BEDSIDE GLUCOSE 240 MG/DL (83-110)
[2017-07-11 16:56] LABS: BEDSIDE GLUCOSE 370 MG/DL (83-110)
[2017-07-11 20:20] LABS: BEDSIDE GLUCOSE 168 MG/DL (83-110)
[2017-07-11] MEDS: SIMVASTATIN 20 MG TAB PO (21:04)
[2017-07-11] MEDS: LATANOPROST 0.005% OPHTH SOLN 2.5 ML OU (21:05)
[2017-07-12] MEDS: PIPERACILLIN/TAZOBACTAM SOD 2.25 GM in APPROPRIATE DILUENT 1 EA IV ×2 (04:59→10:39)
[2017-07-12 06:34] LABS: BASO # 0.1 10^3/uL (0.0-0.2); BASO % 0.6 % (0.0-1.0); EOS # 0.3 10^3/uL (0.0-0.50); EOS % 4.2 % (0.0-3.0); HEMOGLOBIN 10.8 g/dl (14.0-18.0); LYMPH # 1.4 10^3/uL (1.5-4.5); LYMPH % 17.1 % (24.0-44.0); MEAN CORPUSCULAR HEMOGLOBIN 31.1 pg (27.0-33.0); MEAN CORPUSCULAR HGB CONC 33.8 g/dl (32.0-36.5); MEAN CORPUSCULAR VOLUME 92.2 fl (80.0-96.0); MONO # 0.7 10^3/uL (0.0-0.8); MONO % 8.2 % (0.0-5.0); NEUTROPHILS # 5.4 10^3/uL (1.8-7.7); NEUTROPHILS % 67.9 % (36.0-66.0); PLATELET COUNT, AUTOMATED 269 10^3/uL (150-450); RED BLOOD COUNT 3.47 10^6/uL (4.30-6.10); RED CELL DISTRIBUTION WIDTH 12.6 % (11.5-14.5); WHITE BLOOD COUNT 7.9 10^3/uL (4.0-10.0)
[2017-07-12 06:46] LABS: ANION GAP 8 MEQ/L (8-16); BLOOD UREA NITROGEN 14 MG/DL (7-18); CALCIUM LEVEL 7.1 MG/DL (8.8-10.2); CARBON DIOXIDE LEVEL 24 MEQ/L (21-32); CHLORIDE LEVEL 116 MEQ/L (98-107); CREATININE FOR GFR 1.46 MG/DL (0.70-1.30); GLOMERULAR FILTRATION RATE 48.7 (>35); GLUCOSE, FASTING 201 MG/DL (70-100); POTASSIUM SERUM 3.8 MEQ/L (3.5-5.1); SODIUM LEVEL 148 MEQ/L (136-145)
[2017-07-12] MEDS: PANTOPRAZOLE 40MG TAB (PROTONIX) PO (08:04)
[2017-07-12] MEDS: HumaLOG INSULIN (NovoLOG) PER UNIT SC ×2 (08:04→11:55)
[2017-07-12] MEDS: LACTOBACILLUS ACIDOPHILUS CAP (BACID) PO ×2 (08:04→11:54)
[2017-07-12 11:42] LABS: BEDSIDE GLUCOSE 293 MG/DL (83-110)
== END 2017-07-12 14:20 | disposition home or self-care (01) | DRG 871 ==
LOC: M PED 07-11 23:55 → M ED 04:15 → M ED INP 08:11 → M ICU 09:42
PROVIDERS: General Practice
PROC: 02HV33Z Insertion of Infusion Device into Superior Vena Cava, Percutaneous Approach (ICD-10-PCS; principal; 2017-07-08)
DX: A41.51 Sepsis due to Escherichia coli [E. coli] (principal); E11.00 Type 2 diabetes mellitus with hyperosmolarity without nonketotic hyperglycemic-hyperosmolar coma (NKHHC); R65.21 Severe sepsis with septic shock; N13.30 Unspecified hydronephrosis; N17.9 Acute kidney failure, unspecified; N39.0 Urinary tract infection, site not specified; A04.4 Other intestinal Escherichia coli infections; E11.22 Type 2 diabetes mellitus with diabetic chronic kidney disease; I12.9 Hypertensive chronic kidney disease with stage 1 through stage 4 chronic kidney disease, or unspecified chronic kidney disease; E78.5 Hyperlipidemia, unspecified; H40.9 Unspecified glaucoma; N52.9 Male erectile dysfunction, unspecified; N18.3 Chronic kidney disease, stage 3 (moderate); Z87.891 Personal history of nicotine dependence; E86.0 Dehydration; Z79.84 Long term (current) use of oral hypoglycemic drugs; Z79.899 Other long term (current) drug therapy; I48.91 Unspecified atrial fibrillation; Z91.14 Patient's other noncompliance with medication regimen; Z66 Do not resuscitate

== ENCOUNTER 2017-07-16 20:46 | Emergency (ER) | payer MEDICARE ==
[2017-07-16] MEDS: NS 500 ML IV ×2 (21:15)
[2017-07-16 21:39] LABS: BASO # 0.1 10^3/uL (0.0-0.2); BASO % 0.7 % (0.0-1.0); EOS # 0.1 10^3/uL (0.0-0.50); EOS % 0.7 % (0.0-3.0); HEMATOCRIT 39.9 % (42.0-52.0); HEMOGLOBIN 12.9 g/dl (14.0-18.0); IMMATURE GRANULOCYTE % 1.6 % (0-3.0); LYMPH % 9.6 % (24.0-44.0); MEAN CORPUSCULAR HEMOGLOBIN 30.7 pg (27.0-33.0); MEAN CORPUSCULAR HGB CONC 32.3 g/dl (32.0-36.5); MONO # 0.7 10^3/uL (0.0-0.8); MONO % 6.9 % (0.0-5.0); NEUTROPHILS # 8.7 10^3/uL (1.8-7.7); NEUTROPHILS % 80.5 % (36.0-66.0); PLATELET COUNT, AUTOMATED 565 10^3/uL (150-450); RED CELL DISTRIBUTION WIDTH 13.1 % (11.5-14.5); WHITE BLOOD COUNT 10.7 10^3/uL (4.0-10.0)
[2017-07-16] MEDS: HumuLIN R (REGULAR) INSULIN (NovoLIN R) **100U/ML** PER UNIT IV ×6 (21:50→23:42)
[2017-07-16 22:07] LABS: ANION GAP 7 MEQ/L (8-16); BLOOD UREA NITROGEN 12 MG/DL (7-18); CALCIUM LEVEL 8.8 MG/DL (8.8-10.2); CARBON DIOXIDE LEVEL 29 MEQ/L (21-32); CHLORIDE LEVEL 101 MEQ/L (98-107); CREATININE FOR GFR 1.74 MG/DL (0.70-1.30); GLOMERULAR FILTRATION RATE 39.8 (>35); POTASSIUM SERUM 4.5 MEQ/L (3.5-5.1); SODIUM LEVEL 137 MEQ/L (136-145)
[2017-07-16 22:14] LABS: GLUCOSE, FASTING 702 MG/DL (70-100)
[2017-07-16 22:30] LABS: BEDSIDE GLUCOSE 511 MG/DL (83-110)
[2017-07-16 23:22] LABS: BEDSIDE GLUCOSE 315 MG/DL (83-110)
[2017-07-16] MEDS: POTASSIUM CHLORIDE 10 MEQ SR TABLET PO ×2 (23:27)
[2017-07-17 09:14] LABS: BEDSIDE GLUCOSE > 600 MG/DL (83-110)
[2017-07-17 13:42] LABS: BEDSIDE GLUCOSE 183 MG/DL (83-110)
== END 2017-07-17 00:37 | disposition home or self-care (01) ==
LOC: M ED 07-17 00:37
DX: E11.65 Type 2 diabetes mellitus with hyperglycemia (principal); N20.0 Calculus of kidney; I10 Essential (primary) hypertension; Z87.442 Personal history of urinary calculi; N28.9 Disorder of kidney and ureter, unspecified; Z79.84 Long term (current) use of oral hypoglycemic drugs; Z79.899 Other long term (current) drug therapy
CPT/HCPCS: 80048

== ENCOUNTER → 2017-07-16 | Outpatient (CLI) | payer MEDICARE | LOC: M LRY 11:48 | DX: N20.0 Calculus of kidney (principal) | CPT/HCPCS: 74018 ==

== ENCOUNTER → 2017-07-16 | Outpatient (REF) | payer MEDICARE ==
[2017-07-16 18:53] LABS: ANION GAP 9 MEQ/L (8-16); BLOOD UREA NITROGEN 10 MG/DL (7-18); CALCIUM LEVEL 8.8 MG/DL (8.8-10.2); CARBON DIOXIDE LEVEL 29 MEQ/L (21-32); CHLORIDE LEVEL 104 MEQ/L (98-107); CREATININE FOR GFR 1.52 MG/DL (0.70-1.30); GLOMERULAR FILTRATION RATE 46.5 (>35); POTASSIUM SERUM 4.2 MEQ/L (3.5-5.1); SODIUM LEVEL 142 MEQ/L (136-145)
[2017-07-16 19:09] LABS: GLUCOSE, FASTING 442 MG/DL (70-100)
== END ==
LOC: M SFHCLERA 11:32
DX: E11.9 Type 2 diabetes mellitus without complications (principal)
CPT/HCPCS: 80048

== ENCOUNTER → 2017-07-31 | Outpatient (REF) | payer MEDICARE ==
[2017-07-31 16:26] LABS: HEMATOCRIT 38.6 % (42.0-52.0); HEMOGLOBIN 12.7 g/dl (14.0-18.0); MEAN CORPUSCULAR HEMOGLOBIN 30.1 pg (27.0-33.0); MEAN CORPUSCULAR HGB CONC 32.9 g/dl (32.0-36.5); MEAN CORPUSCULAR VOLUME 91.5 fl (80.0-96.0); PLATELET COUNT, AUTOMATED 381 10^3/uL (150-450); RED BLOOD COUNT 4.22 10^6/uL (4.30-6.10); RED CELL DISTRIBUTION WIDTH 13.4 % (11.5-14.5); WHITE BLOOD COUNT 8.2 10^3/uL (4.0-10.0)
[2017-07-31 16:38] LABS: ESTIMATED AVERAGE GLUCOSE 258 MG/DL (60-110); HEMOGLOBIN A1c 10.6 %
[2017-07-31 16:52] LABS: ALBUMIN/GLOBULIN RATIO 0.86 (1.00-1.93); ALKALINE PHOSPHATASE 122 U/L (45-117); ALT/SGPT 12 U/L (12-78); ANION GAP 8 MEQ/L (8-16); AST/SGOT 11 U/L (7-37); BILIRUBIN,TOTAL 0.4 MG/DL (0.2-1.0); BLOOD UREA NITROGEN 19 MG/DL (7-18); CALCIUM LEVEL 8.7 MG/DL (8.8-10.2); CARBON DIOXIDE LEVEL 25 MEQ/L (21-32); CHLORIDE LEVEL 103 MEQ/L (98-107); GLOMERULAR FILTRATION RATE 40.9 (>35); GLUCOSE, FASTING 262 MG/DL (70-100); POTASSIUM SERUM 5.1 MEQ/L (3.5-5.1); SODIUM LEVEL 136 MEQ/L (136-145); TOTAL PROTEIN 6.5 GM/DL (6.4-8.2)
[2017-07-31 17:20] LABS: ERYTHROCYTE SEDIMENTATION RATE 57 mm/hr (0-30)
== END ==
LOC: M SFHCLERA 13:36
DX: R63.4 Abnormal weight loss (principal); E11.9 Type 2 diabetes mellitus without complications
CPT/HCPCS: 84443

== ENCOUNTER 2017-08-02 12:35 | Emergency (ER) | payer MEDICARE ==
[2017-08-02 15:19] LABS: BASO # 0.1 10^3/uL (0.0-0.2); BASO % 1.2 % (0.0-1.0); EOS # 0.2 10^3/uL (0.0-0.50); EOS % 1.9 % (0.0-3.0); HEMATOCRIT 39.2 % (42.0-52.0); HEMOGLOBIN 13.1 g/dl (14.0-18.0); IMMATURE GRANULOCYTE % 0.8 % (0-3.0); LYMPH # 1.6 10^3/uL (1.5-4.5); MEAN CORPUSCULAR HEMOGLOBIN 30.1 pg (27.0-33.0); MEAN CORPUSCULAR HGB CONC 33.4 g/dl (32.0-36.5); MEAN CORPUSCULAR VOLUME 90.1 fl (80.0-96.0); MONO % 11.3 % (0.0-5.0); NEUTROPHILS # 5.7 10^3/uL (1.8-7.7); NEUTROPHILS % 65.8 % (36.0-66.0); PLATELET COUNT, AUTOMATED 436 10^3/uL (150-450); RED BLOOD COUNT 4.35 10^6/uL (4.30-6.10); RED CELL DISTRIBUTION WIDTH 13.2 % (11.5-14.5); WHITE BLOOD COUNT 8.6 10^3/uL (4.0-10.0)
[2017-08-02 15:37] LABS: ERYTHROCYTE SEDIMENTATION RATE 46 mm/hr (0-30)
[2017-08-02 15:51] LABS: ALBUMIN 3.3 GM/DL (3.2-5.2); ALKALINE PHOSPHATASE 121 U/L (45-117); ALT/SGPT 13 U/L (12-78); ANION GAP 8 MEQ/L (8-16); AST/SGOT 12 U/L (7-37); BILIRUBIN,TOTAL 0.6 MG/DL (0.2-1.0); BLOOD UREA NITROGEN 21 MG/DL (7-18); C REACTIVE PROTEIN QUANTITATIV 0.78 MG/DL (0.00-0.30); CALCIUM LEVEL 9.3 MG/DL (8.8-10.2); CARBON DIOXIDE LEVEL 24 MEQ/L (21-32); CHLORIDE LEVEL 101 MEQ/L (98-107); CREATININE FOR GFR 1.78 MG/DL (0.70-1.30); GLOMERULAR FILTRATION RATE 38.8 (>35); GLUCOSE, FASTING 269 MG/DL (70-100); POTASSIUM SERUM 5.1 MEQ/L (3.5-5.1); SODIUM LEVEL 133 MEQ/L (136-145); TOTAL PROTEIN 6.6 GM/DL (6.4-8.2)
[2017-08-02] MEDS: NS 1,000 ML IV (16:32)
== END 2017-08-02 17:59 | disposition home or self-care (01) ==
LOC: M ED 12:35
DX: K59.00 Constipation, unspecified (principal); E86.0 Dehydration; I10 Essential (primary) hypertension; Z87.891 Personal history of nicotine dependence; Z79.899 Other long term (current) drug therapy; M79.604 Pain in right leg
CPT/HCPCS: 71046

== ENCOUNTER → 2017-09-13 | Outpatient (REF) | payer MEDICARE ==
[2017-09-13 18:45] LABS: ANION GAP 6 MEQ/L (8-16); BLOOD UREA NITROGEN 36 MG/DL (7-18); CALCIUM LEVEL 8.4 MG/DL (8.8-10.2); CARBON DIOXIDE LEVEL 25 MEQ/L (21-32); CHLORIDE LEVEL 108 MEQ/L (98-107); CREATININE FOR GFR 1.82 MG/DL (0.70-1.30); GLOMERULAR FILTRATION RATE 37.8 (>35); GLUCOSE, FASTING 177 MG/DL (70-100); POTASSIUM SERUM 4.4 MEQ/L (3.5-5.1); SODIUM LEVEL 139 MEQ/L (136-145)
== END ==
LOC: M SFHCLERA 14:18
DX: N18.9 Chronic kidney disease, unspecified (principal)
CPT/HCPCS: 80048

== ENCOUNTER → 2017-10-17 | Outpatient (REF) | payer MEDICARE ==
[2017-10-17 11:25] LABS: ANION GAP 6 MEQ/L (8-16); BLOOD UREA NITROGEN 24 MG/DL (7-18); CALCIUM LEVEL 8.7 MG/DL (8.8-10.2); CARBON DIOXIDE LEVEL 27 MEQ/L (21-32); CHLORIDE LEVEL 111 MEQ/L (98-107); CREATININE FOR GFR 1.59 MG/DL (0.70-1.30); GLOMERULAR FILTRATION RATE 44.1 (>35); GLUCOSE, FASTING 190 MG/DL (70-100); POTASSIUM SERUM 4.5 MEQ/L (3.5-5.1); SODIUM LEVEL 144 MEQ/L (136-145)
[2017-10-17 12:03] LABS: CREATININE, URINE 99.5 MG/DL; MALB URINE SIEMENS 9.2 MG/L; MAU/CREAT RATIO 9.2 MCG/MG (0.0-30.0)
== END ==
LOC: M SFHCLERA 09:31
DX: N18.3 Chronic kidney disease, stage 3 (moderate) (principal)
CPT/HCPCS: 82043

== ENCOUNTER 2017-10-30 18:26 | Observation (INO) | payer MEDICARE ==
[2017-10-30 20:58] LABS: BASO # 0.1 10^3/uL (0.0-0.2); BASO % 1.2 % (0.0-1.0); EOS # 0.3 10^3/uL (0.0-0.50); EOS % 4.2 % (0.0-3.0); HEMATOCRIT 39.6 % (42.0-52.0); IMMATURE GRANULOCYTE % 0.5 % (0-3.0); LYMPH # 1.9 10^3/uL (1.5-4.5); LYMPH % 23.3 % (24.0-44.0); MEAN CORPUSCULAR HEMOGLOBIN 30.1 pg (27.0-33.0); MEAN CORPUSCULAR HGB CONC 32.8 g/dl (32.0-36.5); MEAN CORPUSCULAR VOLUME 91.7 fl (80.0-96.0); MONO # 0.9 10^3/uL (0.0-0.8); MONO % 10.8 % (0.0-5.0); NEUTROPHILS # 4.9 10^3/uL (1.8-7.7); PLATELET COUNT, AUTOMATED 268 10^3/uL (150-450); RED BLOOD COUNT 4.32 10^6/uL (4.30-6.10); RED CELL DISTRIBUTION WIDTH 12.6 % (11.5-14.5); WHITE BLOOD COUNT 8.2 10^3/uL (4.0-10.0)
[2017-10-30 21:22] LABS: ERYTHROCYTE SEDIMENTATION RATE 6 mm/hr (0-30)
[2017-10-30 21:26] LABS: ALBUMIN 3.8 GM/DL (3.2-5.2); ALBUMIN/GLOBULIN RATIO 1.27 (1.00-1.93); ALKALINE PHOSPHATASE 96 U/L (45-117); ALT/SGPT 20 U/L (12-78); ANION GAP 7 MEQ/L (8-16); AST/SGOT 13 U/L (7-37); BILIRUBIN,DIRECT 0.1 MG/DL (0.0-0.2); BILIRUBIN,TOTAL 0.3 MG/DL (0.2-1.0); BLOOD UREA NITROGEN 30 MG/DL (7-18); C REACTIVE PROTEIN QUANTITATIV < 0.30 MG/DL (0.00-0.30); CALCIUM LEVEL 8.2 MG/DL (8.8-10.2); CARBON DIOXIDE LEVEL 26 MEQ/L (21-32); CHLORIDE LEVEL 108 MEQ/L (98-107); CREATININE FOR GFR 2.04 MG/DL (0.70-1.30); GLUCOSE, FASTING 232 MG/DL (70-100); POTASSIUM SERUM 4.7 MEQ/L (3.5-5.1); SODIUM LEVEL 141 MEQ/L (136-145); TOTAL PROTEIN 6.8 GM/DL (6.4-8.2)
[2017-10-30] MEDS: NS 1,000 ML IV (23:31)
[2017-10-31 01:09] LABS: BEDSIDE GLUCOSE 163 MG/DL (83-110)
[2017-10-31] MEDS: TAMSULOSIN 0.4 MG CAP PO ×2 (01:11→21:24)
[2017-10-31] MEDS: FUROSEMIDE 20 MG/2 ML VIAL (J1940) IV (01:11)
[2017-10-31] MEDS: LEVEMIR (INSULIN DETEMIR) 1 UNITS/0.01ML SC ×2 (01:11→21:24)
[2017-10-31 01:44] LABS: APPEARANCE, URINE CLEAR (CLEAR); BACTERIA, URINE AUTO NEGATIVE (NEGATIVE); BILIRUBIN, URINE AUTO NEGATIVE (NEGATIVE); BLOOD, URINE BLOOD NEGATIVE (NEGATIVE); COLOR, URINE YELLOW (YELLOW); GLUCOSE, URINE (UA) AUTO 1+ mg/dL (NEGATIVE); KETONE, URINE AUTO NEGATIVE (NEGATIVE); LEUKOCYTE ESTERASE, URINE AUTO NEGATIVE (NEGATIVE); NITRITE, URINE AUTO NEGATIVE (NEGATIVE); PROTEIN, URINE AUTO NEGATIVE (NEGATIVE); RBC, URINE AUTO 1 /HPF (0-3); SPECIFIC GRAVITY URINE AUTO 1.017 (1.002-1.035); SQUAMOUS EPITHELIAL CELL UR AU 0 /HPF (0-6); UROBILINOGEN, URINE AUTO 0.2 mg/dL (0.0-2.0); WBC, URINE AUTO 1 /HPF (0-3)
[2017-10-31] MEDS: SIMVASTATIN 20 MG TAB PO ×2 (02:54→21:24)
[2017-10-31] MEDS: FINASTERIDE 5 MG TAB PO ×2 (02:54→21:24)
[2017-10-31 03:01] LABS: CPK CREATINE PHOSPHOKINASE 65 U/L (39-308)
[2017-10-31] MEDS: LATANOPROST 0.005% OPHTH SOLN 2.5 ML OU ×2 (03:18→21:24)
[2017-10-31] MEDS: HEPARIN SOD (PORCINE) 5000 UNITS/ML VIAL SC ×3 (06:28→21:24)
[2017-10-31] MEDS: GLIMEPIRIDE 2 MG TAB PO (08:09)
[2017-10-31 10:11] LABS: ANION GAP 7 MEQ/L (8-16); BLOOD UREA NITROGEN 29 MG/DL (7-18); CALCIUM LEVEL 8.6 MG/DL (8.8-10.2); CARBON DIOXIDE LEVEL 28 MEQ/L (21-32); CHLORIDE LEVEL 108 MEQ/L (98-107); CREATININE FOR GFR 1.85 MG/DL (0.70-1.30); GLUCOSE, FASTING 71 MG/DL (70-100); POTASSIUM SERUM 3.8 MEQ/L (3.5-5.1); SODIUM LEVEL 143 MEQ/L (136-145)
[2017-10-31 12:11] LABS: BEDSIDE GLUCOSE 190 MG/DL (83-110)
[2017-10-31 16:32] LABS: BEDSIDE GLUCOSE 188 MG/DL (83-110)
[2017-10-31] MEDS: OMEPRAZOLE 20 MG CAP PO (17:14)
[2017-10-31 21:21] LABS: BEDSIDE GLUCOSE 151 MG/DL (83-110)
[2017-11-01] MEDS: HEPARIN SOD (PORCINE) 5000 UNITS/ML VIAL SC ×3 (05:22→21:17)
[2017-11-01] MEDS: GLIMEPIRIDE 2 MG TAB PO ×3 (07:30→09:00)
[2017-11-01 07:55] LABS: BEDSIDE GLUCOSE 146 MG/DL (83-110)
[2017-11-01 12:46] LABS: BEDSIDE GLUCOSE 176 MG/DL (83-110)
[2017-11-01 16:46] LABS: BEDSIDE GLUCOSE 246 MG/DL (83-110)
[2017-11-01] MEDS: OMEPRAZOLE 20 MG CAP PO (18:00)
[2017-11-01 20:16] LABS: BEDSIDE GLUCOSE 287 MG/DL (83-110)
[2017-11-01] MEDS: LATANOPROST 0.005% OPHTH SOLN 2.5 ML OU (21:17)
[2017-11-01] MEDS: SIMVASTATIN 20 MG TAB PO (21:17)
[2017-11-01] MEDS: LEVEMIR (INSULIN DETEMIR) 1 UNITS/0.01ML SC (21:17)
[2017-11-01] MEDS: FINASTERIDE 5 MG TAB PO (21:17)
[2017-11-01] MEDS: TAMSULOSIN 0.4 MG CAP PO (21:17)
[2017-11-02] MEDS: NS 0.45% 1,000 ML IV (05:10)
[2017-11-02] MEDS: HEPARIN SOD (PORCINE) 5000 UNITS/ML VIAL SC ×2 (05:10→11:44)
[2017-11-02 05:22] LABS: BEDSIDE GLUCOSE 166 MG/DL (83-110)
[2017-11-02] MEDS: GLIMEPIRIDE 2 MG TAB PO (08:01)
[2017-11-02 11:36] LABS: BEDSIDE GLUCOSE 202 MG/DL (83-110)
[2017-11-02 13:22] LABS: ANION GAP 8 MEQ/L (8-16); BLOOD UREA NITROGEN 29 MG/DL (7-18); CALCIUM LEVEL 8.4 MG/DL (8.8-10.2); CARBON DIOXIDE LEVEL 26 MEQ/L (21-32); CHLORIDE LEVEL 104 MEQ/L (98-107); CREATININE FOR GFR 1.78 MG/DL (0.70-1.30); GLOMERULAR FILTRATION RATE 38.7 (>35); GLUCOSE, FASTING 204 MG/DL (70-100); POTASSIUM SERUM 4.6 MEQ/L (3.5-5.1); SODIUM LEVEL 138 MEQ/L (136-145)
[2017-11-02 13:32] LABS: BASO # 0.1 10^3/uL (0.0-0.2); BASO % 0.8 % (0.0-1.0); EOS # 0.2 10^3/uL (0.0-0.50); EOS % 2.4 % (0.0-3.0); HEMATOCRIT 39.1 % (42.0-52.0); HEMOGLOBIN 13.1 g/dl (13.5-17.5); IMMATURE GRANULOCYTE % 0.4 % (0-3.0); LYMPH # 1.6 10^3/uL (1.5-4.5); LYMPH % 17.3 % (24.0-44.0); MEAN CORPUSCULAR HEMOGLOBIN 30.3 pg (27.0-33.0); MEAN CORPUSCULAR HGB CONC 33.5 g/dl (32.0-36.5); MEAN CORPUSCULAR VOLUME 90.3 fl (80.0-96.0); MONO # 1.3 10^3/uL (0.0-0.8); MONO % 13.9 % (0.0-5.0); NEUTROPHILS # 6.1 10^3/uL (1.8-7.7); NEUTROPHILS % 65.2 % (36.0-66.0); PLATELET COUNT, AUTOMATED 251 10^3/uL (150-450); RED BLOOD COUNT 4.33 10^6/uL (4.30-6.10); RED CELL DISTRIBUTION WIDTH 12.2 % (11.5-14.5); WHITE BLOOD COUNT 9.4 10^3/uL (4.0-10.0)
== END 2017-11-02 15:17 | disposition home or self-care (01) ==
LOC: M ED INP 18:27 → M MSPAV 10-31 01:55 → M ED 18:26
DX: M79.661 Pain in right lower leg (principal); L98.499 Non-pressure chronic ulcer of skin of other sites with unspecified severity; N18.3 Chronic kidney disease, stage 3 (moderate); E11.22 Type 2 diabetes mellitus with diabetic chronic kidney disease; I12.9 Hypertensive chronic kidney disease with stage 1 through stage 4 chronic kidney disease, or unspecified chronic kidney disease; E78.5 Hyperlipidemia, unspecified; Z87.891 Personal history of nicotine dependence; Z79.4 Long term (current) use of insulin; Z79.899 Other long term (current) drug therapy
CPT/HCPCS: 37224

== ENCOUNTER → 2017-10-30 | Outpatient (CLI) | payer MEDICARE | LOC: M LRY 11:42 | DX: M77.31 Calcaneal spur, right foot (principal); M79.661 Pain in right lower leg | CPT/HCPCS: 73630 ==

== ENCOUNTER → 2017-11-01 | Outpatient (CLI) | payer MEDICARE ==
[~2017-11-01] MED LIST changes: -ACAR50TA2 PO; -FLON1SPR; -GLIM4TAB PO; +HEPARIN 1,000 UNITS/ML 10ML VIAL (FOR RADIOLOGY& DIALYSIS ONLY) As Ordered; +ISOVUE-300 61% 50ML VIAL (Q9967) As Ordered; -JANU100T PO; -LATA5OPD OU; -LISI10TA4 PO; +MIDAZOLAM INJ 2 MG/2 ML VIAL (J2250) As Ordered; -PROT1TAB2 PO; -SIMV20TA2 PO; -ZOFR4TAB3 PO; +fentaNYL 100 MCG/2 ML INJECTION (J3010) As Ordered
== END ==
LOC: M RAD 08:00
DX: M79.661 Pain in right lower leg (principal); Z53.9 Procedure and treatment not carried out, unspecified reason

== ENCOUNTER → 2017-11-09 | Outpatient (REF) | payer MEDICARE ==
[2017-11-09 16:45] LABS: HEMATOCRIT 37.9 % (42.0-52.0); HEMOGLOBIN 12.4 g/dl (13.5-17.5); MEAN CORPUSCULAR HEMOGLOBIN 30.2 pg (27.0-33.0); MEAN CORPUSCULAR HGB CONC 32.7 g/dl (32.0-36.5); MEAN CORPUSCULAR VOLUME 92.2 fl (80.0-96.0); PLATELET COUNT, AUTOMATED 338 10^3/uL (150-450); RED BLOOD COUNT 4.11 10^6/uL (4.30-6.10); RED CELL DISTRIBUTION WIDTH 12.1 % (11.5-14.5); WHITE BLOOD COUNT 8.5 10^3/uL (4.0-10.0)
[2017-11-09 17:28] LABS: ANION GAP 9 MEQ/L (8-16); BLOOD UREA NITROGEN 24 MG/DL (7-18); CALCIUM LEVEL 8.4 MG/DL (8.8-10.2); CARBON DIOXIDE LEVEL 28 MEQ/L (21-32); CHLORIDE LEVEL 106 MEQ/L (98-107); CREATININE FOR GFR 1.54 MG/DL (0.70-1.30); GLOMERULAR FILTRATION RATE 45.7 (>35); GLUCOSE, FASTING 229 MG/DL (70-100); POTASSIUM SERUM 4.3 MEQ/L (3.5-5.1); SODIUM LEVEL 143 MEQ/L (136-145)
== END ==
LOC: M SFHCLERA 14:52
DX: M79.661 Pain in right lower leg (principal)
CPT/HCPCS: 80048

== ENCOUNTER → 2017-11-19 | Outpatient (CLI) | payer MEDICARE ==
[2017-11-19 13:43] LABS: BASO # 0.1 10^3/uL (0.0-0.2); BASO % 1.2 % (0.0-1.0); EOS # 0.3 10^3/uL (0.0-0.50); HEMATOCRIT 41.2 % (42.0-52.0); HEMOGLOBIN 13.4 g/dl (13.5-17.5); IMMATURE GRANULOCYTE % 0.3 % (0-3.0); LYMPH % 22.9 % (24.0-44.0); MEAN CORPUSCULAR HGB CONC 32.5 g/dl (32.0-36.5); MEAN CORPUSCULAR VOLUME 92.4 fl (80.0-96.0); MONO # 0.9 10^3/uL (0.0-0.8); MONO % 9.9 % (0.0-5.0); NEUTROPHILS # 5.4 10^3/uL (1.8-7.7); NEUTROPHILS % 62.7 % (36.0-66.0); PLATELET COUNT, AUTOMATED 378 10^3/uL (150-450); RED BLOOD COUNT 4.46 10^6/uL (4.30-6.10); RED CELL DISTRIBUTION WIDTH 12.4 % (11.5-14.5); WHITE BLOOD COUNT 8.7 10^3/uL (4.0-10.0)
[2017-11-19 14:07] LABS: ANION GAP 6 MEQ/L (8-16); BLOOD UREA NITROGEN 25 MG/DL (7-18); CALCIUM LEVEL 8.7 MG/DL (8.8-10.2); CARBON DIOXIDE LEVEL 27 MEQ/L (21-32); CHLORIDE LEVEL 108 MEQ/L (98-107); CREATININE FOR GFR 1.69 MG/DL (0.70-1.30); GLOMERULAR FILTRATION RATE 41.1 (>35); GLUCOSE, FASTING 258 MG/DL (70-100); SODIUM LEVEL 141 MEQ/L (136-145)
== END ==
LOC: M LAB 13:15
DX: I70.213 Atherosclerosis of native arteries of extremities with intermittent claudication, bilateral legs (principal)
CPT/HCPCS: 80048

== ENCOUNTER → 2017-11-27 | Outpatient (CLI) | payer MEDICARE | END | disposition home or self-care (01) | LOC: M IRPRO 07:13 | DX: I70.211 Atherosclerosis of native arteries of extremities with intermittent claudication, right leg (principal); I70.92 Chronic total occlusion of artery of the extremities; M79.604 Pain in right leg; E11.22 Type 2 diabetes mellitus with diabetic chronic kidney disease; I12.9 Hypertensive chronic kidney disease with stage 1 through stage 4 chronic kidney disease, or unspecified chronic kidney disease; N18.9 Chronic kidney disease, unspecified; Z72.0 Tobacco use | CPT/HCPCS: 36247 ==

== ENCOUNTER → 2017-12-04 | Outpatient (REF) | payer MEDICARE ==
[2017-12-04 11:27] LABS: ANION GAP 7 MEQ/L (8-16); BLOOD UREA NITROGEN 24 MG/DL (7-18); CALCIUM LEVEL 8.8 MG/DL (8.8-10.2); CARBON DIOXIDE LEVEL 29 MEQ/L (21-32); CHLORIDE LEVEL 110 MEQ/L (98-107); CREATININE FOR GFR 1.67 MG/DL (0.70-1.30); GLOMERULAR FILTRATION RATE 41.6 (>35); GLUCOSE, FASTING 97 MG/DL (70-100); POTASSIUM SERUM 4.2 MEQ/L (3.5-5.1); SODIUM LEVEL 146 MEQ/L (136-145)
[2017-12-04 13:32] LABS: ESTIMATED AVERAGE GLUCOSE 186 MG/DL (60-110); HEMOGLOBIN A1c 8.1 %
== END ==
LOC: M SFHCLERA 07:53
DX: E11.51 Type 2 diabetes mellitus with diabetic peripheral angiopathy without gangrene (principal); I73.9 Peripheral vascular disease, unspecified
CPT/HCPCS: 83036

== ENCOUNTER → 2018-02-14 | Outpatient (CLI) | payer MEDICARE | LOC: M LRY 09:26 | DX: N20.0 Calculus of kidney (principal) | CPT/HCPCS: 74018 ==

== ENCOUNTER → 2018-04-02 | Outpatient (REF) | payer MEDICARE ==
[2018-04-02 12:16] LABS: ANION GAP 5 MEQ/L (8-16); BLOOD UREA NITROGEN 25 MG/DL (7-18); CARBON DIOXIDE LEVEL 30 MEQ/L (21-32); CHLORIDE LEVEL 108 MEQ/L (98-107); CREATININE FOR GFR 1.61 MG/DL (0.70-1.30); GLOMERULAR FILTRATION RATE 43.4 (>35); GLUCOSE, FASTING 134 MG/DL (70-100); POTASSIUM SERUM 4.5 MEQ/L (3.5-5.1); SODIUM LEVEL 143 MEQ/L (136-145)
[2018-04-02 12:49] LABS: ESTIMATED AVERAGE GLUCOSE 171 MG/DL (60-110); HEMOGLOBIN A1c 7.6 %
== END ==
LOC: M SFHCLERA 09:23
DX: E11.22 Type 2 diabetes mellitus with diabetic chronic kidney disease (principal); N18.3 Chronic kidney disease, stage 3 (moderate); Z23 Encounter for immunization
CPT/HCPCS: 83036

== ENCOUNTER → 2018-04-09 | Outpatient (CLI) | payer MEDICARE | LOC: M RAD 09:16 | DX: I73.9 Peripheral vascular disease, unspecified (principal); I70.92 Chronic total occlusion of artery of the extremities | CPT/HCPCS: 93926 ==

== ENCOUNTER → 2018-04-24 | Outpatient (CLI) | payer MEDICARE ==
[~2018-04-24] MED LIST changes: +ACAR50TA2 PO; +ACTO30TA15 PO; +CEFD1CAP8 PO; +FINA5TAB2; +FINA5TAB2 PO; +FLOM0.4C39; +FLOM0.4C39 PO; +FLON1SPR; +GLIM4TAB PO; -HEPARIN 1,000 UNITS/ML 10ML VIAL (FOR RADIOLOGY& DIALYSIS ONLY) As Ordered; +HEPARIN 1,000 UNITS/ML 10ML VIAL (FOR RADIOLOGY& DIALYSIS ONLY) As Ordered ONE; +INSULANT SC; -ISOVUE-300 61% 50ML VIAL (Q9967) As Ordered; +ISOVUE-300 61% 50ML VIAL (Q9967) As Ordered ONE; +JANU100T PO; +LATA5OPD OU; +LIDOCAINE 1% MDV 20ML VIAL As Ordered ONE; +LIDOCAINE 2% MDV 20 ML VIAL As Ordered ONE; +LISI-542 PO; +LISI10TA4 PO; -MIDAZOLAM INJ 2 MG/2 ML VIAL (J2250) As Ordered; +MIDAZOLAM INJ 2 MG/2 ML VIAL (J2250) As Ordered ONE; +OMEP40CA2 PO; +PIOG1TAB36; +PROT1TAB2 PO; +RANI1TAB6 PO; +RISATAB3 PO; +SIMV20TA2 PO; +SITA50TAB PO; +SULF1TAB72 PO; +SULFAMETH/TRIMETH; +TAMSULOSIN PO; +ZOFR4TAB14 PO; -fentaNYL 100 MCG/2 ML INJECTION (J3010) As Ordered; +fentaNYL 100 MCG/2 ML INJECTION (J3010) As Ordered ONE
--- NOTE | 2018-05-02 08:35 | REPIR ---
DATE OF PROCEDURE: 04/24/2018 ATTENDING SURGEON: Dr. Shanta Sal HOT DIE PICKER: Marilu Daniel and China Awan. PREOPERATIVE DIAGNOSES: Right lower extremity claudication, chronic renal insufficiency. POSTOPERATIVE DIAGNOSES: Right lower extremity claudication, chronic renal insufficiency. PROCEDURE: Left common femoral arterial cannulation, selective right common femoral artery catheter placement with right lower extremity angiogram, selective right superficial femoral artery catheter placement with right lower extremity angiogram, Mynx closure of the left common femoral arteriotomy. 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 The patient now has worsening claudication and will undergo a repeat right lower extremity angiogram with possible angioplasty stent and/or atherectomy. Risks, benefits, and alternative treatment options were discussed with the patient. ANESTHESIA: Local with 10 mL of 2% lidocaine flow time 0.8 minutes. CONTRAST: 4.5 mL of Isovue-300. HEPARIN: None. COMPLICATIONS: None. DRAINS: None. SPECIMENS: None. IMPLANTS: Mynx closure device to close the arteriotomy in the left common femoral arteriotomy. PROCEDURE: The patient was taken to the angiography suite, placed supine on the angiography room table and prepped and draped in a standard surgical fashion. The left common femoral artery was cannulated with a micropuncture needle after anesthetizing the overlying skin with 2% lidocaine. A micropuncture wire was advanced to the micropuncture needle, which was upsized to a micropuncture sheath. A Bentson wire was advanced through the micropuncture sheath, which was upsized to 5-Tajik sheath. An Omni flush catheter was advanced up and over through the aorta into the bifurcation of the iliac arteries and placed in the right common femoral artery and a right lower extremity angiogram was performed. Catheter was advanced as far distal into the superficial femoral artery as possible, and the remainder of the right lower extremity angiogram was performed. 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 This is unchanged from his previous angiogram. Catheters and wires were removed. The Mynx closure was used close the arteriotomy in the left common femoral artery with an additional 10 minutes of adjunctive pressure applied for hemostasis. Dressings were then applied. The patient tolerated the procedure well. All instrument, sponge, and needle counts were correct at the end the case. There were no complications. Dr. Sal was present for directed the entire case. The patient was transferred to the holding area and subsequently discharged home in stable condition.
== END | disposition home or self-care (01) ==
LOC: M IRPRO 06:09
PROVIDERS: ATTEND Surgery Vascular Surgery
DX: I73.9 Peripheral vascular disease, unspecified (principal); N18.9 Chronic kidney disease, unspecified
CPT/HCPCS: 36247; 75710; C1760; C1769; C1887; C1894; G0269; Q9967

== ENCOUNTER → 2018-07-31 | Outpatient (REF) | payer MEDICARE ==
[~2018-07-31] MED LIST changes: -HEPARIN 1,000 UNITS/ML 10ML VIAL (FOR RADIOLOGY& DIALYSIS ONLY) As Ordered ONE; -ISOVUE-300 61% 50ML VIAL (Q9967) As Ordered ONE; -LIDOCAINE 1% MDV 20ML VIAL As Ordered ONE; -LIDOCAINE 2% MDV 20 ML VIAL As Ordered ONE; -MIDAZOLAM INJ 2 MG/2 ML VIAL (J2250) As Ordered ONE; -fentaNYL 100 MCG/2 ML INJECTION (J3010) As Ordered ONE
[2018-07-31 12:11] LABS: CALCIUM LEVEL 8.8 MG/DL (8.8-10.2); CREATININE FOR GFR 1.87 MG/DL (0.70-1.30); GLOMERULAR FILTRATION RATE 36.5 (>35); POTASSIUM SERUM 4.6 MEQ/L (3.5-5.1)
[2018-07-31 12:43] LABS: HEMOGLOBIN A1c 7.5 %
== END ==
LOC: M SFHCLERA 08:00
PROVIDERS: ATTEND Family Medicine
DX: N18.3 Chronic kidney disease, stage 3 (moderate) (principal)

== ENCOUNTER → 2018-11-07 | Outpatient (REF) | payer MEDICARE ==
[~2018-11-07] MED LIST changes: +LATA0.0013 OU; -LATA5OPD OU
[2018-11-07 11:42] LABS: CALCIUM LEVEL 8.6 MG/DL (8.8-10.2); CHOLESTEROL RISK RATIO 2.93 (<5); CREATININE FOR GFR 1.62 MG/DL (0.70-1.30); POTASSIUM SERUM 4.8 MEQ/L (3.5-5.1)
[2018-11-07 12:00] LABS: MALB URINE SIEMENS 6.8 MG/L; MAU/CREAT RATIO 5.5 MCG/MG (0.0-30.0)
[2018-11-07 12:01] LABS: HEMOGLOBIN A1c 7.9 %
== END ==
LOC: M SFHCLERA 08:57
PROVIDERS: ATTEND Family Medicine
DX: E11.9 Type 2 diabetes mellitus without complications (principal); N18.3 Chronic kidney disease, stage 3 (moderate)
CPT/HCPCS: 80048; 80061; 82043; 83036; G0463

== ENCOUNTER → 2019-02-10 | Outpatient (REF) | payer MEDICARE ==
[~2019-02-10] MED LIST changes: +RANI-356 PO; -RANI1TAB6 PO
[2019-02-10 12:09] LABS: CALCIUM LEVEL 8.8 MG/DL (8.8-10.2); CREATININE FOR GFR 1.46 MG/DL (0.70-1.30); GLOMERULAR FILTRATION RATE 48.5 (>35); POTASSIUM SERUM 4.4 MEQ/L (3.5-5.1)
== END ==
LOC: M SFHCLERA 08:33
PROVIDERS: ATTEND Family Medicine
DX: N18.3 Chronic kidney disease, stage 3 (moderate) (principal); Z23 Encounter for immunization
CPT/HCPCS: 80048; 90471; 90472; 90682; 90715; G0008; G0463

== ENCOUNTER → 2019-03-31 | Outpatient (CLI) | payer MEDICARE ==
[~2019-03-31] MED LIST changes: -GLIM4TAB PO; +GLIM4TAB3 PO; -OMEP40CA2 PO; +OMEP40CA97 PO
[2019-03-31 17:17] LABS: PROSTATIC SPECIFIC AG MONITOR 1.8 NG/ML (< 4.00)
[2019-04-01 09:39] LABS: CREATININE FOR GFR 1.64 MG/DL (0.70-1.30); GLOMERULAR FILTRATION RATE 42.4 (>35)
== END ==
LOC: M LRY 10:39
PROVIDERS: ATTEND Urology
DX: R31.9 Hematuria, unspecified (principal); N20.0 Calculus of kidney; R35.0 Frequency of micturition

== ENCOUNTER → 2019-04-23 | Outpatient (REF) | payer MEDICARE ==
[~2019-04-23] MED LIST changes: -RANI-356 PO; +RANI-397 PO; -SIMV20TA2 PO; +SIMV20TA22 PO; -SULF1TAB72 PO; +SULF400T14 PO
[2019-04-23 12:08] LABS: CALCIUM LEVEL 9.2 MG/DL (8.8-10.2); CREATININE FOR GFR 1.68 MG/DL (0.70-1.30); GLOMERULAR FILTRATION RATE 41.3 (>35); POTASSIUM SERUM 4.4 MEQ/L (3.5-5.1)
[2019-04-23 12:23] LABS: HEMOGLOBIN A1c 7.8 %
== END ==
LOC: M SFHCLERA 08:49
PROVIDERS: ATTEND Family Medicine
DX: E11.9 Type 2 diabetes mellitus without complications (principal)
CPT/HCPCS: 80048; 83036; G0463

== ENCOUNTER → 2019-07-23 | Outpatient (REF) | payer OTHER, MEDICARE ==
[~2019-07-23] MED LIST changes: -ACAR50TA2 PO; +ACAR50TA3 PO; -GLIM4TAB3 PO; +GLIM4TAB5 PO
[2019-07-23 12:06] LABS: CALCIUM LEVEL 8.6 MG/DL (8.8-10.2); CREATININE FOR GFR 1.46 MG/DL (0.70-1.30); GLOMERULAR FILTRATION RATE 48.5 (>35); POTASSIUM SERUM 4.3 MEQ/L (3.5-5.1)
== END ==
LOC: M SFHCLERA 07:48
PROVIDERS: ATTEND Family Medicine
DX: N18.3 Chronic kidney disease, stage 3 (moderate) (principal)

== ENCOUNTER → 2019-08-11 | Outpatient (CLI) | payer OTHER, MEDICARE ==
[2019-08-11 16:18] LABS: CREATININE FOR GFR 1.79 MG/DL (0.70-1.30); GLOMERULAR FILTRATION RATE 38.3 (>35); POTASSIUM SERUM 4.7 MEQ/L (3.5-5.1)
== END ==
LOC: M LRY 10:35
PROVIDERS: ATTEND Urology
DX: R39.9 Unspecified symptoms and signs involving the genitourinary system (principal)

== ENCOUNTER → 2019-10-23 | Outpatient (REF) | payer MEDICARE ==
[~2019-10-23] MED LIST changes: -LISI-542 PO; +LISI-898 PO; +LISI10TA22 PO; -LISI10TA4 PO
[2019-10-23 16:40] LABS: BASO # 0.1 10^3/uL (0.0-0.2); BASO % 1.1 % (0.0-1.0); EOS # 0.2 10^3/uL (0.0-0.5); EOS % 2.2 % (0.0-3.0); HEMATOCRIT 42.5 % (42.0-52.0); HEMOGLOBIN 14.2 g/dl (13.5-17.5); LYMPH # 2.3 10^3/uL (1.5-5.0); LYMPH % 25.2 % (24.0-44.0); MEAN CORPUSCULAR HEMOGLOBIN 30.9 pg (27.0-33.0); MEAN CORPUSCULAR HGB CONC 33.4 g/dl (32.0-36.5); MEAN CORPUSCULAR VOLUME 92.6 fl (80.0-96.0); MONO # 0.8 10^3/uL (0.0-0.8); MONO % 9.2 % (0.0-5.0); NEUTROPHILS # 5.6 10^3/uL (1.5-8.5); PLATELET COUNT, AUTOMATED 228 10^3/uL (150-450); RED BLOOD COUNT 4.59 10^6/uL (4.30-6.10)
[2019-10-23 16:43] LABS: CALCIUM LEVEL 8.7 MG/DL (8.8-10.2); CHOLESTEROL RISK RATIO 3.666 (<5); CREATININE FOR GFR 1.82 MG/DL (0.70-1.30); GLOMERULAR FILTRATION RATE 37.5 (>35); POTASSIUM SERUM 5.1 MEQ/L (3.5-5.1)
[2019-10-23 16:53] LABS: HEMOGLOBIN A1c 8.2 %
[2019-10-23 17:12] LABS: MALB URINE SIEMENS 14.7 MG/L; MAU/CREAT RATIO 8.4 MCG/MG (0.0-30.0)
== END ==
LOC: M SFHCLERA 11:41
PROVIDERS: ATTEND Family Medicine
DX: E11.65 Type 2 diabetes mellitus with hyperglycemia (principal); E78.5 Hyperlipidemia, unspecified
CPT/HCPCS: 80048; 80061; 82043; 83036; 85025; G0463

== ENCOUNTER → 2020-03-16 | Outpatient (CLI) | payer MEDICARE ==
[~2020-03-16] MED LIST changes: +LISI-542 PO; -LISI-898 PO; -LISI10TA22 PO; +LISI10TA4 PO
[2020-03-16 18:20] LABS: CREATININE FOR GFR 1.72 MG/DL (0.70-1.30); GLOMERULAR FILTRATION RATE 40.1 (>35); POTASSIUM SERUM 4.7 MEQ/L (3.5-5.1); PROSTATIC SPECIFIC AG MONITOR 2.42 NG/ML (< 4.00)
== END ==
LOC: M WUC 10:44
PROVIDERS: ATTEND Urology
DX: R97.20 Elevated prostate specific antigen [PSA] (principal); N40.0 Benign prostatic hyperplasia without lower urinary tract symptoms

== ENCOUNTER → 2020-04-15 | Outpatient (CLI) | payer MEDICARE ==
[2020-04-15 12:57] LABS: APPEARANCE, URINE HAZY (CLEAR); BACTERIA, URINE AUTO NEGATIVE (NEGATIVE); BILIRUBIN, URINE AUTO NEGATIVE (NEGATIVE); BLOOD, URINE BLOOD NEGATIVE (NEGATIVE); COLOR, URINE AMBER (YELLOW); GLUCOSE, URINE (UA) AUTO NEGATIVE (NEGATIVE); KETONE, URINE AUTO NEGATIVE (NEGATIVE); LEUKOCYTE ESTERASE, URINE AUTO TRACE (NEGATIVE); MUCUS, URINE SMALL (NEGATIVE); NITRITE, URINE AUTO NEGATIVE (NEGATIVE); PROTEIN, URINE AUTO NEGATIVE (NEGATIVE); RBC, URINE AUTO 1 /HPF (0-3); SPECIFIC GRAVITY URINE AUTO 1.023 (1.002-1.035); SQUAMOUS EPITHELIAL CELL UR AU 0 /HPF (0-6); WBC, URINE AUTO 5 /HPF (0-3)
[2020-04-15 13:38] LABS: CALCIUM LEVEL 9.1 MG/DL (8.8-10.2); CREATININE FOR GFR 1.74 MG/DL (0.70-1.30); GLOMERULAR FILTRATION RATE 39.5 (>35); POTASSIUM SERUM 4.8 MEQ/L (3.5-5.1)
[2020-04-15 13:53] LABS: MAU/CREAT RATIO 13.7 MCG/MG (0.0-30.0)
== END ==
LOC: M WUC 10:50
PROVIDERS: ATTEND Family Medicine
DX: N18.30 Chronic kidney disease, stage 3 unspecified (principal)

== ENCOUNTER → 2020-06-28 | Outpatient (CLI) | payer MEDICARE ==
[~2020-06-28] MED LIST changes: -LISI-542 PO; +LISI-898 PO; +LISI10TA22 PO; -LISI10TA4 PO
--- NOTE | 2020-06-28 11:54 | REP ---
INDICATION: CKD III. COMPARISON: None. TECHNIQUE: Renal sonography. FINDINGS: . Renal cortical echogenicity pattern is normal bilaterally and contours are smooth. There is no evidence of hydronephrosis on either side. There are 2 right renal cyst noted measuring 2.3 x 2.0 x 2.5 cm and 1.3 x 1.3 x 1.2 cm respectively.. The right kidney measures 8.7 x 3.6 x 4.5 cm. Left renal dimensions are 9.8 x 4.8 x 4.8 cm. Bilateral renal atrophic cortical thinning is seen. IMPRESSION: Bilateral renal atrophy. Two small cysts in the right kidney. No evidence of hydronephrosis.. <Electronically signed by Franki Mariscal > 06/28/20 [id number]
--- NOTE | 2020-06-28 11:56 | REP ---
INDICATION: CKD III, BLADDER WITH PVR. COMPARISON: Comparison CT study July 07, 2017.. TECHNIQUE: Limited pelvic, bladder sonography. FINDINGS: Visualized bladder velarde are smooth. No extravesical lesion is seen. Prevoid bladder volume is calculated at 103 mL. Emptying ureteral jets were not seen. Postvoid, bladder lumen is not visible. This is consistent with complete emptying. 0 postvoid residual. IMPRESSION: Limited bladder filling. 0 postvoid residual. No bladder wall lesion. Bladder wall is slightly trabeculated and prostate enlargement elevates the bladder floor. <Electronically signed by Franki Mariscal > 06/28/20 [id number]
== END ==
LOC: M RAD 10:18
PROVIDERS: ATTEND Internal Medicine Nephrology
DX: N18.32 Chronic kidney disease, stage 3b (principal)